=== PATIENT | female | born 1995 | race Hispanic/Latino ===

== ENCOUNTER 2018-05-15 23:56 | Emergency (ER) | payer BC ==
[2018-05-16] MEDS ORDERED: Adacel (T-DAP) 0.5 ML VIAL ONE ×2 (00:11→01:17)
[2018-05-16] MEDS ORDERED: SUMAtriptan Succinate 6 MG/0.5 ML VIAL ONE ×2 (00:11→01:17)
[2018-05-16] MEDS ORDERED: Rabies Vaccine Human 2.5 UNITS VIAL IM ONE (00:30)
[2018-05-16] MEDS ORDERED: Bacitracin Zinc 1 Packet ONE (01:25)
== END 2018-05-16 01:23 | disposition home or self-care (01) ==
LOC: ERS 23:56
DX: S61.250A Open bite of right index finger without damage to nail, initial encounter (principal); F42.9 Obsessive-compulsive disorder, unspecified; F41.9 Anxiety disorder, unspecified; Z87.891 Personal history of nicotine dependence; Z23 Encounter for immunization; W54.0XXA Bitten by dog, initial encounter
CPT/HCPCS: 90375; 90471; 90472; 90675; 90715; 96372; J3030

== ENCOUNTER → 2018-05-24 | Day surgery (SDC) | payer BC | LOC: ER/OP 00:28 | PROVIDERS: ATTEND Emergency Medicine | DX: Z23 Encounter for immunization (principal) | CPT/HCPCS: 90675 ==